=== PATIENT | female | born 1955 | race Two or more races ===

== ENCOUNTER 2018-07-05 09:39 | Observation (INO) | payer MEDICARE, MEDICAID ==
[~2018-07-05] VITALS: Ht 160 cm; Wt 113.6 kg
--- NOTE | 2018-07-05 10:45 | NUR ---
TO CT SCAN
--- NOTE | 2018-07-05 10:45 | NUR ---
PER [facility] STROKE ALERT CALLED AT 10:25; JESSENIA JHAVERI INTOOK PATIENT
[2018-07-05 10:48] LABS: BASOPHILS % (AUTO) 0.3 % (0-1); EOSINOPHILS # (AUTO) 0.1 X10'3 (0-0.9); EOSINOPHILS % (AUTO) 1.4 % (0-6); HEMOGLOBIN 13.7 g/dl (12.0-16.0); LYMPHOCYTES # (AUTO) 2.7 X10'3 (1.1-4.8); LYMPHOCYTES % (AUTO) 40.1 % (21-51); MEAN CORPUSCULAR HEMOGLOBIN 30.8 PG (27.0-31.0); MEAN CORPUSCULAR HGB CONC 33.3 g/dL (33.0-36.5); MEAN CORPUSCULAR VOLUME 92.4 FL (78-98); MONOCYTES # (AUTO) 0.5 X10'3 (0-0.9); MONOCYTES % (AUTO) 7.2 % (2-12); NEUTROPHILS # (AUTO) 3.4 X10'3 (1.8-7.7); PLATELET COUNT 181 X10'3 (140-440); RED BLOOD COUNT 4.44 X10'6 (4.20-5.60); RED CELL DISTRIBUTION WIDTH 13.8 % (11.5-14.5); WHITE BLOOD COUNT 6.6 X10'3 (4.5-11.0)
[2018-07-05 11:03] LABS: ALANINE AMINOTRANSFERASE 69 U/L (12-78); ALBUMIN 3.7 G/DL (3.4-5.0); ALKALINE PHOSPHATASE 92 IU/L (46-116); ANION GAP 8 (8-16); ASPARTATE AMINO TRANSFERASE 34 U/L (10-37); BILIRUBIN,TOTAL 0.3 MG/DL (0.1-1.0); BLOOD UREA NITROGEN 19 MG/DL (7-18); BUN/CREATININE RATIO 25.3 (6.6-38.0); CALCIUM 8.6 MG/DL (8.5-10.1); CHLORIDE 105 MMOL/L (99-107); CREATININE 0.75 MG/DL (0.40-0.90); GLUCOSE 128 MG/DL (70-104); POTASSIUM 4.1 MMOL/L (3.5-5.1); SODIUM 140 MMOL/L (135-145); TOTAL CARBON DIOXIDE 27.2 MMOL/L (24-32); TOTAL PROTEIN 7.5 G/DL (6.4-8.2); TROPONIN I < 0.04 NG/ML (0.0-0.05); eGFR 78 ML/MIN
[2018-07-05 11:08] LABS: CLARITY,URINE CLOUDY (Clear); COLOR,URINE YELLOW (Yellow); GLUCOSE, URINE NEGATIVE (Neg); KETONES,URINE NEGATIVE (Neg); LEUKOCYTE ESTERASE ,URINE SMALL (Neg); NITRITES, URINE NEGATIVE (Neg); OCCULT BLOOD,URINE TRACE-INTACT (Neg); PROTEIN,URINE NEGATIVE (Neg); UROBILINOGEN,URINE 0.2 E.U/dL (0.2-1.0)
--- NOTE | 2018-07-05 11:09 | NUR ---
stroke alert called off per ottoniel aguirre
[2018-07-05 11:11] LABS: UA COLLECTION TYPE CLN CATCH MIDSTREAM
[2018-07-05 11:15] LABS: BACTERIA,URINE 4+ /HPF (Neg); MUCUS STRANDS MODERATE /LPF (Neg); RBC,URINE 0-2 /HPF (0-2); SQUAMOUS EPITHELIAL CELL,UR MODERATE /LPF (FEW)
[2018-07-05] MEDS ORDERED: magnesium hydroxide 30ml (MOM) UD suspension PO PRN (11:40)
[2018-07-05] MEDS ORDERED: ondansetron/PF 4mg/2ml inj IV PRN (11:40)
[2018-07-05] MEDS ORDERED: aspirin 81mg tab.chew PO ONE (11:40)
[2018-07-05] MEDS ORDERED: acetaminophen 325mg tablet PO PRN (11:40)
[2018-07-05] MEDS ORDERED: mag hydrox/Alum hydrox/simeth 30ml oral suspension PO PRN (11:40)
--- NOTE | 2018-07-05 11:41 | NUR ---
CALLED [facility] [phone] TO OBTAIN MEDICATION LIST
[2018-07-05] MEDS ORDERED: METF-438 PO (11:48)
[2018-07-05] MEDS ORDERED: PIOG15TA8 PO (11:50)
[2018-07-05] MEDS ORDERED: LEVO25TA7 PO (11:52)
[2018-07-05] MEDS ORDERED: DULA1.5P SQ (11:52)
[2018-07-05] MEDS ORDERED: LOVA20TA2 PO (11:53)
[2018-07-05] MEDS ORDERED: GABA300C PO (11:54)
[2018-07-05] MEDS ORDERED: PANT20TA3 PO (11:54)
[2018-07-05] MEDS ORDERED: GABA-532 PO (11:54)
[2018-07-05] MEDS ORDERED: ONDA4TAB6 PO (11:55)
--- NOTE | 2018-07-05 12:01 | NUR ---
PATIENT TAKEN TO MRI
[2018-07-05 12:02] LABS: CHOL/HDL RATIO 2.7 (0.00-4.99); CHOLESTEROL 141 MG/DL (0-200); HDL CHOLESTEROL 52 MG/DL (35-60); LDL CHOLESTEROL 75 MG/DL (50-100); TRIGLYCERIDES 149 MG/DL (20-135)
--- NOTE | 2018-07-05 12:43 | NUR ---
PT BACK FROM CT.
[2018-07-05] MEDS: normal saline 1000ml 1,000 ML IV SCH (12:44)
[2018-07-05] MEDS: CefTRIAXone/D5W-Rocephin 1gm 50 ML IV SCH (13:00)
--- NOTE | 2018-07-05 14:06 | NUR ---
REPORT TO AB RUELAS ON ORTHO NEURO. PATIENT TO GO TO ROOM 4006 VIA [place] ON MONITOR WITH RN. PATIENT NEURO STATUS IS UNCHANGED SINCE INITIAL ASSESSMENT.
[2018-07-05 14:30] VITALS: BP 142/72
[2018-07-05 15:15] LABS: HEMOGLOBIN A1C 6.7 % (4.5-6.2)
[2018-07-05] MEDS ORDERED: non-formulary drug (Ondansetron Hcl (Zofran) 1 TAB) PO PRN (17:10)
[2018-07-05] MEDS ORDERED: DULAGLUTIDE 1.5 MG SQ SCH (17:10)
[2018-07-05] MEDS ORDERED: ondansetron 4mg rapidly disintigrating tab PO PRN (17:20)
[2018-07-05 18:00] VITALS: BP 147/81
--- NOTE | 2018-07-05 18:19 | NUR ---
Report to May, RN
[2018-07-05] MEDS ORDERED: non-formulary drug (Metformin HCl 1 TAB) PO SCH (20:00)
[2018-07-05] MEDS: lactobacillus rhamnosus 10,000 MMU CELLS/CAPSULE PO SCH (20:47)
[2018-07-05] MEDS: heparin, porcine 5000 units/ml vial SQ SCH (20:48)
[2018-07-05] MEDS: metFORMIN 500mg tablet PO SCH (20:48)
[2018-07-05] MEDS ORDERED: gabapentin 300mg capsule PO SCH (21:00)
[2018-07-05 22:00] VITALS: BP 118/53
[2018-07-06] MEDS: normal saline 1000ml 1,000 ML IV SCH (01:08)
[2018-07-06 02:00] VITALS: BP 125/59
[2018-07-06 06:00] VITALS: BP 131/71
[2018-07-06] MEDS ORDERED: pantoprazole 40mg Tablet.DR PO SCH (07:30)
[2018-07-06] MEDS ORDERED: aspirin 81mg tablet.DR PO SCH (08:00)
[2018-07-06] MEDS ORDERED: levoTHYROXINE 25mcg tablet PO SCH (08:00)
[2018-07-06] MEDS ORDERED: pioglitazone 15mg tablet PO SCH (08:00)
[2018-07-06] MEDS ORDERED: non-formulary drug (Pantoprazole Sodium (Protonix) 1 TAB) PO SCH (08:00)
[2018-07-06] MEDS ORDERED: atorvastatin 10mg tablet PO SCH (08:00)
[2018-07-06] MEDS ORDERED: non-formulary drug (Lovastatin* (Mevacor*) 1 TAB) PO SCH (08:00)
[2018-07-06] MEDS: lactobacillus rhamnosus 10,000 MMU CELLS/CAPSULE PO SCH (09:04)
[2018-07-06] MEDS: CefTRIAXone/D5W-Rocephin 1gm 50 ML IV SCH (09:04)
[2018-07-06] MEDS: metFORMIN 500mg tablet PO SCH (09:04)
[2018-07-06] MEDS: heparin, porcine 5000 units/ml vial SQ SCH (09:05)
[2018-07-06 10:00] VITALS: BP 123/61
[2018-07-06] MEDS ORDERED: ASPI81TA52 PO (10:53)
[2018-07-06] MEDS ORDERED: CIPR-230 PO (10:53)
[2018-07-12] MEDS ORDERED: DULAGLUTIDE SQ SCH (09:00)
== END 2018-07-06 14:25 | disposition home or self-care (01) ==
LOC: ER 09:40 → ORTHO 4S 13:53 → CMPBEDREQ 19:41
PROVIDERS: ADMIT Family Medicine; ATTEND Family Medicine
DX: N39.0 Urinary tract infection, site not specified (principal); G45.9 Transient cerebral ischemic attack, unspecified; I10 Essential (primary) hypertension; E11.9 Type 2 diabetes mellitus without complications; E03.9 Hypothyroidism, unspecified; K21.9 Gastro-esophageal reflux disease without esophagitis; Z98.890 Other specified postprocedural states; E78.5 Hyperlipidemia, unspecified; E78.00 Pure hypercholesterolemia, unspecified; E11.65 Type 2 diabetes mellitus with hyperglycemia; Z79.84 Long term (current) use of oral hypoglycemic drugs
CPT/HCPCS: 36415; 70450; 70544; 70551; 71045; 80053; 80061; 81001; 82948; 83036; 84484; 85025; 85610; 87070; 87077; 87088; 87186; 92508; 92616; 93005; 93306; 93880; 96361; 96365; 96366; 96372; 97162; 97530; 99291; G0378; J0696; J1644; J7030

== ENCOUNTER 2018-10-25 12:13 | Emergency (ER) | payer MEDICARE, MEDICAID ==
[~2018-10-25] VITALS: Ht 157.5 cm; Wt 95.5 kg
[~2018-10-25 12:13] MED LIST: ASPI81TA52 PO; DULA1.5P SQ; GABA300C PO; LEVO25TA7 PO; LOVA20TA2 PO; METF-438 PO; ONDA4TAB6 PO; PANT20TA3 PO; PIOG15TA8 PO
[2018-10-25 13:04] LABS: CLARITY,URINE CLEAR (Clear); COLOR,URINE YELLOW (Yellow); GLUCOSE, URINE NEGATIVE (Neg); KETONES,URINE TRACE mg/dl (Neg); LEUKOCYTE ESTERASE ,URINE TRACE (Neg); NITRITES, URINE NEGATIVE (Neg); OCCULT BLOOD,URINE NEGATIVE (Neg); PH,URINE 6.5 (4.8-8.0); PROTEIN,URINE NEGATIVE (Neg)
[2018-10-25 13:07] LABS: UA COLLECTION TYPE CLN CATCH MIDSTREAM
[2018-10-25 13:08] LABS: BASOPHILS # (AUTO) 0.1 X10'3 (0-0.2); BASOPHILS % (AUTO) 0.8 % (0-1); EOSINOPHILS % (AUTO) 0.6 % (0-6); HEMATOCRIT 41.8 % (35.0-45.0); HEMOGLOBIN 13.8 g/dl (12.0-16.0); LYMPHOCYTES # (AUTO) 2.3 X10'3 (1.1-4.8); LYMPHOCYTES % (AUTO) 33.3 % (21-51); MEAN CORPUSCULAR HEMOGLOBIN 30.5 PG (27.0-31.0); MEAN CORPUSCULAR VOLUME 92.2 FL (78-98); MEAN PLATELET VOLUME 9.1 FL (7.4-10.4); MONOCYTES # (AUTO) 0.5 X10'3 (0-0.9); MONOCYTES % (AUTO) 6.8 % (2-12); NEUTROPHILS % (AUTO) 58.5 % (42-75); PLATELET COUNT 166 X10'3 (140-440); RED BLOOD COUNT 4.53 X10'6 (4.20-5.60); RED CELL DISTRIBUTION WIDTH 14.3 % (11.5-14.5); WHITE BLOOD COUNT 6.8 X10'3 (4.5-11.0)
[2018-10-25 13:13] LABS: BACTERIA,URINE FEW /HPF (Neg); RBC,URINE NONE SEEN /HPF (0-2); SQUAMOUS EPITHELIAL CELL,UR MODERATE /LPF (FEW); WBC,URINE 0-4 /HPF (0-4)
[2018-10-25 13:14] LABS: MUCUS STRANDS FEW /LPF (Neg)
[2018-10-25 13:25] LABS: ALANINE AMINOTRANSFERASE 125 U/L (12-78); ALBUMIN/GLOBULIN RATIO 1.1 (1.1-1.5); ALKALINE PHOSPHATASE 94 IU/L (46-116); ANION GAP 13 (8-16); ASPARTATE AMINO TRANSFERASE 71 U/L (10-37); BILIRUBIN,TOTAL 0.5 MG/DL (0.1-1.0); BLOOD UREA NITROGEN 15 MG/DL (7-18); BUN/CREATININE RATIO 24.2 (6.6-38.0); CALCIUM 8.9 MG/DL (8.5-10.1); CHLORIDE 102 MMOL/L (99-107); CREATININE 0.62 MG/DL (0.40-0.90); GLUCOSE 90 MG/DL (70-104); POTASSIUM 3.8 MMOL/L (3.5-5.1); SODIUM 141 MMOL/L (135-145); TOTAL CARBON DIOXIDE 26.4 MMOL/L (24-32); TOTAL PROTEIN 7.8 G/DL (6.4-8.2); eGFR > 90 ML/MIN
[2018-10-25] MEDS ORDERED: ketorolac tromethamine 15mg/ml inj. IV ONE (13:50)
[2018-10-25] MEDS ORDERED: NAPR500T6 PO (13:51)
[2018-10-25 14:09] VITALS: BP 124/80
== END 2018-10-25 14:10 | disposition home or self-care (01) ==
LOC: ER 12:13
DX: M54.5 Low back pain (principal); M54.6 Pain in thoracic spine; E78.00 Pure hypercholesterolemia, unspecified; I10 Essential (primary) hypertension; E11.9 Type 2 diabetes mellitus without complications; Z79.82 Long term (current) use of aspirin; Z79.899 Other long term (current) drug therapy
CPT/HCPCS: 36415; 80053; 81001; 85025; 85610; 87088; 96374; 99283; J1885; 87077; 87186

== ENCOUNTER 2019-08-06 13:00 | Emergency (ER) | payer MEDICAID, MEDICARE ==
[~2019-08-06] VITALS: Ht 160 cm; Wt 100.3 kg
[~2019-08-06 13:00] MED LIST changes: +NAPR500T6 PO
[2019-08-06 13:24] VITALS: BP 129/69
[2019-08-06 15:03] LABS: CLARITY,URINE CLEAR (Clear); COLOR,URINE YELLOW (Yellow); GLUCOSE, URINE NEGATIVE (Neg); KETONES,URINE NEGATIVE (Neg); LEUKOCYTE ESTERASE ,URINE NEGATIVE (Neg); NITRITES, URINE POSITIVE (Neg); OCCULT BLOOD,URINE NEGATIVE (Neg); PROTEIN,URINE NEGATIVE (Neg); UROBILINOGEN,URINE 0.2 E.U/dL (0.2-1.0)
[2019-08-06 15:12] LABS: UA COLLECTION TYPE CLN CATCH MIDSTREAM
[2019-08-06 15:13] LABS: BACTERIA,URINE 4+ /HPF (Neg); MUCUS STRANDS NONE SEEN /LPF (Neg); RBC,URINE NONE SEEN /HPF (0-2); SQUAMOUS EPITHELIAL CELL,UR MODERATE /LPF (FEW); WBC,URINE 0-4 /HPF (0-4)
[2019-08-06 15:22] LABS: BASOPHILS # (AUTO) 0.1 X10'3 (0-0.2); BASOPHILS % (AUTO) 0.9 % (0-1); EOSINOPHILS # (AUTO) 0.1 X10'3 (0-0.9); EOSINOPHILS % (AUTO) 0.9 % (0-6); HEMATOCRIT 41.1 % (35.0-45.0); HEMOGLOBIN 13.6 g/dl (12.0-16.0); LYMPHOCYTES # (AUTO) 2.9 X10'3 (1.1-4.8); LYMPHOCYTES % (AUTO) 36.3 % (21-51); MEAN CORPUSCULAR HEMOGLOBIN 31.3 PG (27.0-31.0); MEAN CORPUSCULAR HGB CONC 33.2 g/dL (33.0-36.5); MEAN CORPUSCULAR VOLUME 94.5 FL (78-98); MEAN PLATELET VOLUME 8.6 FL (7.4-10.4); MONOCYTES # (AUTO) 0.5 X10'3 (0-0.9); MONOCYTES % (AUTO) 6.4 % (2-12); NEUTROPHILS # (AUTO) 4.4 X10'3 (1.8-7.7); NEUTROPHILS % (AUTO) 55.5 % (42-75); PLATELET COUNT 178 X10'3 (140-440); RED BLOOD COUNT 4.35 X10'6 (4.20-5.60); RED CELL DISTRIBUTION WIDTH 14.4 % (11.5-14.5); WHITE BLOOD COUNT 7.9 X10'3 (4.5-11.0)
[2019-08-06] MEDS ORDERED: CEPH500C5 PO (15:22)
[2019-08-06 15:41] LABS: ALANINE AMINOTRANSFERASE 56 U/L (12-78); ALBUMIN 3.7 G/DL (3.4-5.0); ALKALINE PHOSPHATASE 91 IU/L (46-116); ANION GAP 6 (8-16); ASPARTATE AMINO TRANSFERASE 39 U/L (10-37); BILIRUBIN,TOTAL 0.4 MG/DL (0.1-1.0); BLOOD UREA NITROGEN 14 MG/DL (7-18); BUN/CREATININE RATIO 19.2 (6.6-38.0); CALCIUM 8.9 MG/DL (8.5-10.1); CHLORIDE 106 MMOL/L (99-107); CREATININE 0.73 MG/DL (0.40-0.90); GLUCOSE 108 MG/DL (70-104); LIPASE 117 U/L (73-393); POTASSIUM 3.8 MMOL/L (3.5-5.1); SODIUM 141 MMOL/L (135-145); TOTAL CARBON DIOXIDE 28.8 MMOL/L (24-32); TOTAL PROTEIN 7.3 G/DL (6.4-8.2); eGFR 80 ML/MIN
--- NOTE | 2019-08-09 17:57 | NUR ---
CALLED IN [facility] 875MG PO BID X 7 DAYS #14 TO [facility]
== END 2019-08-06 16:17 | disposition home or self-care (01) ==
LOC: ER 13:01
DX: N39.0 Urinary tract infection, site not specified (principal); E78.00 Pure hypercholesterolemia, unspecified; I10 Essential (primary) hypertension; E11.9 Type 2 diabetes mellitus without complications; Z79.82 Long term (current) use of aspirin; Z79.2 Long term (current) use of antibiotics; Z79.899 Other long term (current) drug therapy
CPT/HCPCS: 36415; 80053; 81001; 83690; 85025; 87077; 87088; 87186; 99283

== ENCOUNTER 2019-11-26 04:38 | Emergency (ER) | payer MEDICARE, MEDICAID ==
[~2019-11-26] VITALS: Ht 160 cm; Wt 99.1 kg
[~2019-11-26 04:38] MED LIST changes: +CEPH500C5 PO; +PANT20TA18 PO; -PANT20TA3 PO
[2019-11-26 05:10] LABS: CLARITY,URINE CLOUDY (Clear); COLOR,URINE YELLOW (Yellow); GLUCOSE, URINE NEGATIVE (Neg); KETONES,URINE NEGATIVE (Neg); LEUKOCYTE ESTERASE ,URINE LARGE (Neg); NITRITES, URINE NEGATIVE (Neg); OCCULT BLOOD,URINE LARGE (Neg); PH,URINE 7.5 (4.8-8.0); PROTEIN,URINE 100 mg/dl (Neg)
[2019-11-26 05:15] LABS: UA COLLECTION TYPE CLN CATCH MIDSTREAM
[2019-11-26 05:18] LABS: WBC,URINE TNTC /HPF (0-4)
[2019-11-26 05:19] LABS: WBC CLUMPS,URINE MANY /HPF (NEGATIVE)
[2019-11-26 05:22] LABS: BACTERIA,URINE 3+ /HPF (Neg); RBC,URINE 50-100 /HPF (0-2); SQUAMOUS EPITHELIAL CELL,UR FEW /LPF (FEW)
[2019-11-26 05:24] LABS: MUCUS STRANDS FEW /LPF (Neg)
[2019-11-26 06:05] LABS: ALANINE AMINOTRANSFERASE 87 U/L (12-78); ALBUMIN 3.8 G/DL (3.4-5.0); ALKALINE PHOSPHATASE 94 IU/L (46-116); ANION GAP 7 (8-16); ASPARTATE AMINO TRANSFERASE 52 U/L (10-37); BILIRUBIN,TOTAL 0.5 MG/DL (0.1-1.0); BLOOD UREA NITROGEN 17 MG/DL (7-18); BUN/CREATININE RATIO 26.2 (6.6-38.0); CALCIUM 8.7 MG/DL (8.5-10.1); CHLORIDE 103 MMOL/L (99-107); CREATININE 0.65 MG/DL (0.40-0.90); GLUCOSE 174 MG/DL (70-104); POTASSIUM 3.8 MMOL/L (3.5-5.1); SODIUM 139 MMOL/L (135-145); TOTAL CARBON DIOXIDE 28.6 MMOL/L (24-32); TOTAL PROTEIN 7.5 G/DL (6.4-8.2); eGFR > 90 ML/MIN
[2019-11-26 06:41] LABS: BASOPHILS % (AUTO) 0.4 % (0-1); EOSINOPHILS # (AUTO) 0.1 X10'3 (0-0.9); EOSINOPHILS % (AUTO) 1.3 % (0-6); HEMATOCRIT 42.9 % (35.0-45.0); HEMOGLOBIN 14.2 g/dl (12.0-16.0); LYMPHOCYTES # (AUTO) 1.8 X10'3 (1.1-4.8); LYMPHOCYTES % (AUTO) 25.1 % (21-51); MEAN CORPUSCULAR HGB CONC 33.1 g/dL (33.0-36.5); MEAN CORPUSCULAR VOLUME 93.6 FL (78-98); MEAN PLATELET VOLUME 9.5 FL (7.4-10.4); MONOCYTES # (AUTO) 0.5 X10'3 (0-0.9); MONOCYTES % (AUTO) 7.2 % (2-12); NEUTROPHILS # (AUTO) 4.9 X10'3 (1.8-7.7); PLATELET COUNT 141 X10'3 (140-440); RED BLOOD COUNT 4.58 X10'6 (4.20-5.60); RED CELL DISTRIBUTION WIDTH 14.5 % (11.5-14.5); WHITE BLOOD COUNT 7.4 X10'3 (4.5-11.0)
[2019-11-26] MEDS ORDERED: PHEN-888 PO (06:52)
[2019-11-26] MEDS ORDERED: SULF1TAB49 PO (06:52)
[2019-11-26 07:06] VITALS: BP 136/66
== END 2019-11-26 07:08 | disposition home or self-care (01) ==
LOC: ER 04:38
DX: N39.0 Urinary tract infection, site not specified (principal); E78.00 Pure hypercholesterolemia, unspecified; I10 Essential (primary) hypertension; E11.9 Type 2 diabetes mellitus without complications; E03.9 Hypothyroidism, unspecified; Z79.82 Long term (current) use of aspirin; Z79.899 Other long term (current) drug therapy
CPT/HCPCS: 36415; 80053; 81001; 85025; 87077; 87088; 87186; 99283